=== PATIENT | female | born 1985 | race Caucasian/White ===

== ENCOUNTER 2016-07-16 09:01 | Emergency (ER) | payer MEDICAID ==
[~2016-07-16] VITALS: Ht 157.5 cm; Wt 130.2 kg
[2016-07-16 11:31] VITALS: BP 139/83
== END 2016-07-16 11:31 | disposition home or self-care (01) ==
LOC: ED 09:01
DX: S83.92XA Sprain of unspecified site of left knee, initial encounter (principal); X58.XXXA Exposure to other specified factors, initial encounter; Y93.39 Activity, other involving climbing, rappelling and jumping off; Y99.8 Other external cause status; Y92.89 Other specified places as the place of occurrence of the external cause
CPT/HCPCS: Q0092

== ENCOUNTER 2020-06-30 15:58 | Emergency (ER) | payer SELFPAY ==
[~2020-06-30] VITALS: Ht 157.5 cm; Wt 130.2 kg
[2020-06-30 16:12] VITALS: Ht 157.5 cm; Wt 130.2 kg
[2020-06-30 17:24] LABS: BASOPHIL % 0.4 % (0.2-1.3); PLATELET COUNT 362 x10^3mcL (179-408); RED CELL DISTRIBUTION WIDTH 12.7 % (12.3-17.7)
[2020-06-30 17:28] LABS: CALCIUM 8.8 mg/dL (8.5-10.1); CARBON DIOXIDE 24.1 mmol/L (21-32); CHLORIDE SERUM 100 mmol/L (98-107); CREATININE SERUM 0.8 mg/dL (0.6-1.0); GFR1 > 60 mL/min; GLUCOSE SERUM 109 mg/dL (74-106); POTASSIUM SERUM 3.4 mmol/L (3.5-5.1); SODIUM SERUM 136 mmol/L (136-145)
[2020-06-30 17:32] LABS: ALKALINE PHOSPHATASE 117 U/L (46-116); ALT/SGPT 101 U/L (14-59); AMYLASE 42 U/L (25-115); AST/SGOT 43 U/L (15-37); BILIRUBIN TOTAL 0.59 mg/dL (0.20-1.00); LIPASE 112 IU/L (73-393)
[2020-06-30] MEDS ORDERED: ULTRAM50 MG PO (19:18)
[2020-06-30] MEDS ORDERED: MOT600 PO (19:18)
[2020-06-30] MEDS ORDERED: ONDANSETRON4 M3 PO (19:18)
[2020-06-30 20:41] VITALS: BP 127/74
== END 2020-06-30 20:41 | disposition home or self-care (01) ==
LOC: ED 15:58
PROVIDERS: Emergency Medicine
DX: R10.31 Right lower quadrant pain (principal); R10.32 Left lower quadrant pain; R79.89 Other specified abnormal findings of blood chemistry; F17.210 Nicotine dependence, cigarettes, uncomplicated; Z98.890 Other specified postprocedural states
CPT/HCPCS: J1885; J2405; J7030